=== PATIENT | female | born 1965 | race Caucasian/White ===

== ENCOUNTER 2024-07-03 12:13 | Emergency (ER) | payer SELFPAY ==
[~2024-07-03] VITALS: Ht 165.1 cm; Wt 77.0 kg
[2024-07-03 12:19] VITALS: O2SAT 99
[2024-07-03] MEDS: METOCLOPRAMIDE HCL 10MG/2ML VIAL IV ONE (12:45)
[2024-07-03] MEDS: KETOROLAC 15MG/ML VIAL IV ONE (12:45)
[2024-07-03 13:02] LABS: D-DIMER 0.25 mg/L FEU (<0.50); PROTHROMBIN TIME 10.8 sec (9.6-11.0)
[2024-07-03 13:04] LABS: BASOPHILS % 0.7 % (0.0-2.0); EOSINOPHILS % 0.9 % (0.0-5.0); HEMATOCRIT. 45.8 % (36.0-48.0); HEMOGLOBIN. 14.8 g/dL (12.0-16.0); LYMPHOCYTES % 33.7 % (20.0-50.0); MEAN CORPUSCULAR HEMOGLOBIN 27.8 pg (28.0-32.0); MEAN CORPUSCULAR HGB CONC 32.3 g/dL (31.0-37.0); MEAN CORPUSCULAR VOLUME 86.1 fL (81.0-99.0); MEAN PLATELET VOLUME 10.5 fl (7.4-10.4); MONOCYTES % 9.3 % (2.0-8.0); NEUTROPHILS % 55.4 % (40.0-76.0); PLATELET 166 x1000/uL (130-400); RED BLOOD CELL COUNT 5.32 mill/uL (4.2-5.4); WHITE BLOOD COUNT 6.5 x1000/uL (4.5-11.0)
[2024-07-03 13:08] LABS: CHLORIDE 106 mEq/L (98-107); POTASSIUM 4.4 mEq/L (3.5-5.1); SODIUM 142 mEq/L (136-145)
[2024-07-03 13:09] LABS: CARBON DIOXIDE 28 mEq/L (21-32)
[2024-07-03 13:14] LABS: CREATININE 0.8 mg/dL (0.6-1.0); GLUCOSE 100 mg/dL (70-105)
[2024-07-03 13:15] LABS: UREA NITROGEN BLOOD 16 mg/dL (9-23)
[2024-07-03 13:22] LABS: TROPONIN I HIGH SENSITIVITY < 4 ng/L (3.0-34)
[2024-07-03 15:34] LABS: TROPONIN I HIGH SENSITIVITY < 4 ng/L (3.0-34)
[2024-07-03] MEDS ORDERED: NAPR-677 MT (15:43)
[2024-07-03 16:56] VITALS: BP 120/68; PULSE 53; RESP 12; TEMP 36.4; O2SAT 99
== END 2024-07-03 16:57 | disposition home or self-care (01) ==
LOC: ER 12:13
DX: G43.909 Migraine, unspecified, not intractable, without status migrainosus (principal); Z79.1 Long term (current) use of non-steroidal anti-inflammatories (NSAID); J45.909 Unspecified asthma, uncomplicated; I10 Essential (primary) hypertension; Z98.890 Other specified postprocedural states
CPT/HCPCS: 99285; 96374; 71045; 96375; 80048; 83880; 85025; 85379; 85610; 84484; 36415; 93005; J1885; J2765